=== PATIENT | female | born 1970 ===

== ENCOUNTER 2020-11-19 21:28 | Emergency (ER) | payer OTHER ==
[2020-11-19 21:31] VITALS: BP 164/90; PULSE 71; RESP 18; TEMP 97.9
--- NOTE | 2020-11-19 22:26 | ED ---
Recheck HPI - General Chief Complaint: Recheck/Abnormal Lab/Rx Stated Complaint: Covid Test Time Seen by Provider: 11/19/20 21:32 Source: patient Mode of arrival: ambulatory - History of Present Illness Initial Comments: 50-year-old female patient presents to the emergency department today requesting COVID-19 test in order to cause the [place] border. Patient denies having any symptoms at this time. Did have COVID 1.5 years ago and did have COVID vaccine. Denies any other concerns. - Related Data Allergies Allergy/AdvReac Type Severity Reaction Status Date / Time codeine AdvReac Vomiting Verified 11/19/20 21:31 Review of Systems ROS Statement: Those systems with pertinent positive or pertinent negative responses have been documented in the HPI. ROS Other: All systems not noted in ROS Statement are negative. Past Medical History Past Medical History: No Reported History History of Any Multi-Drug Resistant Organisms: None Reported Past Surgical History: No Surgical Hx Reported Past Psychological History: No Psychological Hx Reported Smoking Status: Never smoker Past Alcohol Use History: None Reported Past Drug Use History: None Reported General Exam General appearance: alert, in no apparent distress, other (Physical well- developed, well-nourished adult female patient in no acute distress.) Respiratory exam: Present: normal lung sounds bilaterally. Absent: respiratory distress, wheezes, rales, rhonchi, stridor Cardiovascular Exam: Present: regular rate, normal rhythm, normal heart sounds. Absent: systolic murmur, diastolic murmur, rubs, gallop, clicks Neurological exam: Present: alert, oriented X3, CN II-XII intact Psychiatric exam: Present: normal affect, normal mood Skin exam: Present: warm, dry, intact, normal color. Absent: rash Course Vital Signs 11/19/20 21:29 Temperature 97.9 F Pulse Rate 71 Respiratory 18 Rate Blood Pressure 164/90 O2 Sat by Pulse 99 Oximetry Medical Decision Making - Medical Decision Making 50-year-old female patient presented to the emergency department today to have COVID-19 test in order to cross the [place] border. No symptoms. Test result was negative. She was provided with a copy and discharged. Case discussed with my attending Dr. Mariscal. - Lab Data Lab Results 11/19/20 Range/Units 21:45 Coronavirus (PCR) Not Detected (Not Detectd) Disposition Clinical Impression: Encounter for laboratory testing for COVID-19 virus Disposition: HOME SELF-CARE Condition: Good Additional Instructions: Follow-up with your primary care physician as needed. Is patient prescribed a controlled substance at d/c from ED?: No Referrals: None,Stated [Primary Care Provider] - 1-2 days Time of Disposition: 22:26
== END 2020-11-19 22:35 | disposition home or self-care (01) ==
LOC: EC 21:28
DX: Z20.822 Contact with and (suspected) exposure to COVID-19 (principal); Z86.16 Personal history of COVID-19
CPT/HCPCS: 87635; 99282